=== PATIENT | female | born 1970 | race Caucasian/White ===

== ENCOUNTER 2023-01-08 05:28 | Emergency (ER) | payer SELFPAY ==
[~2023-01-08] VITALS: Ht 157.5 cm; Wt 61.2 kg
--- NOTE | 2023-01-08 05:50 | NUR ---
PT CAME FROM HOME C/O POSTERIOR NECK AND UPPER BACK RASHES X2DAYS DUE TO ALLERGIC REACTIONS OF HAIR PRODUCTS
[2023-01-08 05:51] VITALS: BP 141/88
[2023-01-08] MEDS ORDERED: DEXAMETHASONE SOD PHOSPHATE 10 MG/ML VIAL IM ONE (06:00)
[2023-01-08] MEDS ORDERED: DEXAMETHASONE SOD PHOSPHATE 10 MG/ML VIAL ONE (06:06)
== END 2023-01-08 06:30 | disposition home or self-care (01) ==
LOC: ER 05:35
DX: L25.2 Unspecified contact dermatitis due to dyes (principal); J45.909 Unspecified asthma, uncomplicated; Z91.013 Allergy to seafood
CPT/HCPCS: 99283; 96372; J1100